=== PATIENT | female | born 1965 | race Caucasian/White ===

== ENCOUNTER 2018-05-29 17:03 | Inpatient (IN) ==
[2018-05-29] MEDS ORDERED: MORPHINE 4 MG/1 ML VIAL IV STA (20:35)
[2018-05-29] MEDS ORDERED: ONDANSETRON 4 MG/2 ML VIAL IV STA (20:35)
[2018-05-29] MEDS ORDERED: ASPIRIN 325 MG TABLET PO STA (20:35)
[2018-05-29] MEDS ORDERED: NITROGLYCERIN 2% OINT 1 INCH/GM PACK TOP STA (20:35)
[2018-05-29] MEDS ORDERED: SODIUM CHLORIDE 0.9% 500 ML IV STA (20:35)
[2018-05-29 21:48] LABS: Basophils # 0.1 10*3/uL (0.0-0.2); Basophils % 0.6 % (0.0-0.8); Eosinophils # 0.4 10*3/uL (0.0-0.87); Eosinophils % 2.8 % (0.00-10.9); Hematocrit 43.9 VOL% (35.7-47.0); Hemoglobin 15.1 GM/DL (12.0-16.0); Immature Granulocytes % 0.4 %; Immature Granulocytes Absolute 0.06 #; Lymphocytes # 5.2 10*3/uL (1.4-4.0); Lymphocytes % 37.5 % (21.3-54.2); Mean Corpuscular HGB Conc 34.4 GM/DL (32-36); Mean Corpuscular Hemoglobin 35 PG (27-34); Mean Corpuscular Volume 100.2 FL (87-102); Mean Platelet Volume 10.1 FL (9.6-12.0); Monocytes # 0.7 10*3/uL (0.11-0.8); Neutrophils # 7.4 10*3/uL (1.4-7.4); Neutrophils % 53.7 % (38.7-73.9); Platelet Count 343 T/CUMM (130-400); Red Blood Count 4.38 MC/CUMM (3.8-5.5); Red Cell Distribution Width 12.1 % (9.3-17.3); White Blood Count 13.8 T/CUMM (4-12)
[2018-05-29 21:55] LABS: Apearance,Urine Slightly Hazy (Clear); Bacteria,Urine Occasional /HPF (Few); Bilirubin,Urine Negative (Negative); Blood, Urine Small mg/dL (Negative); Glucose,Urine (UA) Negative (Negative); INR 0.9; Ketones,Urine Negative (Negative); Mucus,Urine Few /LPF (Occasional); Nitrite,Urine Negative (Negative); PT Patient Result 9.9 SECS; Protein,Urine Negative; RBC,Urine 1 /HPF (0-4); Squamous Epithelial Cell,Urine Occasional /HPF (0-10); Urine Color Yellow (Yellow); Urine Specific Gravity 1.019 (1.001-1.035); Urine Urobilinogen < 2.0 EU/DL (0.2-1.0); WBC,Urine 1 /HPF (0-6)
[2018-05-29 21:58] LABS: Barbiturates Screen,Urine Negative (Negative); Benzodiazepines Screen,Urine Negative (Negative); Cannabinoid Screen,Urine Negative (Negative); Opiate Screen,Urine Positive (Negative); Phencyclidine Screen,Urine Negative (Negative)
[2018-05-29 22:16] LABS: Alanine Aminotransferase 43 U/L (13-56); Albumin 4.1 G/DL (3.4-5.0); Alkaline Phosphatase 85 U/L (45-117); Aspartate Amino Transferase 26 U/L (0-37); Blood Urea Nitrogen 12 MG/DL (7-18); Calcium 9.1 MG/DL (8.5-10.1); Glucose 92 MG/DL (74-106); Osmolality,Calculated 274.7 MOS/KG (273-304); Potassium 3.7 MMOL/L (3.5-5.1); Sodium 138 MMOL/L (136-145); Total Protein 8.3 G/DL (6.4-8.3); Troponin I < 0.015 NG/ML (0.00-0.045)
[2018-05-29] MEDS ORDERED: ONDANSETRON 4 MG/2 ML VIAL IV PRN (23:22)
[2018-05-29] MEDS ORDERED: ACETAMINOPHEN 325 MG TABLET PO PRN (23:22)
[2018-05-30] MEDS: SODIUM CHLORIDE 0.9% 1,000 ML IV SCH ×2 (00:03→13:23)
[2018-05-30] MEDS: NICOTINE 21 MG/24 HR PATCH TRANSDERM PRN (00:15)
[2018-05-30] MEDS: HYDROmorphone 2 MG/1 ML VIAL IV PRN ×5 (00:15→21:56)
[2018-05-30 05:11] LABS: Basophils # 0.1 10*3/uL (0.0-0.2); Basophils % 0.8 % (0.0-0.8); Eosinophils # 0.4 10*3/uL (0.0-0.87); Eosinophils % 4.9 % (0.00-10.9); Hematocrit 37.2 VOL% (35.7-47.0); Immature Granulocytes % 0.2 %; Immature Granulocytes Absolute 0.02 #; Lymphocytes # 3.5 10*3/uL (1.4-4.0); Lymphocytes % 39.5 % (21.3-54.2); Mean Corpuscular HGB Conc 34.1 GM/DL (32-36); Mean Corpuscular Hemoglobin 35 PG (27-34); Mean Corpuscular Volume 101.1 FL (87-102); Monocytes # 0.6 10*3/uL (0.11-0.8); Monocytes % 6.9 % (1.7-12.7); Neutrophils # 4.2 10*3/uL (1.4-7.4); Neutrophils % 47.7 % (38.7-73.9); Red Blood Count 3.68 MC/CUMM (3.8-5.5); Red Cell Distribution Width 12.2 % (9.3-17.3)
[2018-05-30 05:14] LABS: Hemoglobin 12.7 GM/DL (12.0-16.0); Platelet Count 259 T/CUMM (130-400); White Blood Count 8.7 T/CUMM (4-12)
[2018-05-30 05:28] LABS: Albumin 3.1 G/DL (3.4-5.0); Bilirubin,Total 0.9 MG/DL (0.2-1.0); Calcium 8.7 MG/DL (8.5-10.1); Osmolality,Calculated 280.4 MOS/KG (273-304); Potassium 3.4 MMOL/L (3.5-5.1); Total Protein 6.5 G/DL (6.4-8.3)
[2018-05-30] MEDS: PANTOPRAZOLE 40 MG VIAL IV SCH (08:58)
[2018-05-30] MEDS: ASPIRIN EC 81 MG TABLET PO SCH (08:59)
[2018-05-30] MEDS: ENOXAPARIN 40 MG/0.4 ML SYRINGE SUBCUT SCH (19:14)
[2018-05-31] MEDS: HYDROmorphone 2 MG/1 ML VIAL IV PRN ×4 (03:07→22:20)
[2018-05-31] MEDS: NICOTINE 21 MG/24 HR PATCH TRANSDERM PRN (03:07)
[2018-05-31] MEDS: SODIUM CHLORIDE 0.9% 1,000 ML IV SCH ×3 (04:33→21:31)
[2018-05-31] MEDS ORDERED: ERGOCALCIFEROL 50,000 UNIT CAPSULE PO SCH (08:30)
[2018-05-31] MEDS: MECLIZINE 25 MG TABLET PO SCH ×2 (09:34→21:09)
[2018-05-31] MEDS: PANTOPRAZOLE 40 MG VIAL IV SCH (09:34)
[2018-05-31] MEDS: ENALAPRIL 10 MG TABLET PO SCH (09:34)
[2018-05-31] MEDS: ASPIRIN EC 81 MG TABLET PO SCH (09:34)
[2018-05-31] MEDS: ENOXAPARIN 40 MG/0.4 ML SYRINGE SUBCUT SCH (16:22)
[2018-05-31] MEDS: AMITRIPTYLINE 50 MG TABLET PO SCH (21:09)
[2018-06-01] MEDS: HYDROmorphone 2 MG/1 ML VIAL IV PRN ×4 (02:29→20:52)
[2018-06-01] MEDS: SODIUM CHLORIDE 0.9% 1,000 ML IV SCH ×2 (04:33→08:29)
[2018-06-01] MEDS: LEVOTHYROXINE 75 MCG TABLET PO SCH (06:27)
[2018-06-01] MEDS ORDERED: LEVOTHYROXINE 75 MCG TABLET PO SCH (08:16)
[2018-06-01] MEDS: NICOTINE 21 MG/24 HR PATCH TRANSDERM PRN (10:48)
[2018-06-01] MEDS: ENALAPRIL 10 MG TABLET PO SCH (10:49)
[2018-06-01] MEDS: ASPIRIN EC 81 MG TABLET PO SCH (10:49)
[2018-06-01] MEDS: MECLIZINE 25 MG TABLET PO SCH ×2 (10:49→20:52)
[2018-06-01] MEDS: PANTOPRAZOLE 40 MG VIAL IV SCH (10:50)
[2018-06-01] MEDS: ENOXAPARIN 40 MG/0.4 ML SYRINGE SUBCUT SCH (17:24)
[2018-06-01] MEDS: AMITRIPTYLINE 50 MG TABLET PO SCH (20:52)
[2018-06-02] MEDS: LEVOTHYROXINE 75 MCG TABLET PO SCH (05:59)
[2018-06-02] MEDS: MECLIZINE 25 MG TABLET PO SCH ×2 (09:37→21:16)
[2018-06-02] MEDS: ENALAPRIL 10 MG TABLET PO SCH (09:37)
[2018-06-02] MEDS: ASPIRIN EC 81 MG TABLET PO SCH (09:37)
[2018-06-02] MEDS: PANTOPRAZOLE 40 MG VIAL IV SCH (09:37)
[2018-06-02] MEDS: ENOXAPARIN 40 MG/0.4 ML SYRINGE SUBCUT SCH (15:55)
[2018-06-02] MEDS: AMITRIPTYLINE 50 MG TABLET PO SCH (21:16)
[2018-06-03] MEDS: LACTATED RINGERS 1,000 ML IV SCH ×3 (02:00→19:15)
[2018-06-03] MEDS: LEVOTHYROXINE 75 MCG TABLET PO SCH (06:20)
[2018-06-03] MEDS ORDERED: DIAZEPAM 5 MG TABLET PO ONE (09:34)
[2018-06-03] MEDS ORDERED: MIDAZOLAM 2 MG/2 ML VIAL IV ONE (09:34)
[2018-06-03] MEDS ORDERED: fentaNYL 100 MCG/2 ML VIAL IV ONE (09:34)
[2018-06-03] MEDS: PANTOPRAZOLE 40 MG VIAL IV SCH (09:45)
[2018-06-03] MEDS ORDERED: SODIUM CHLORIDE 0.45% 1,000 ML IV SCH (10:00)
[2018-06-03] MEDS: ENALAPRIL 10 MG TABLET PO SCH (10:19)
[2018-06-03] MEDS: ASPIRIN EC 81 MG TABLET PO SCH (10:20)
[2018-06-03] MEDS: MECLIZINE 25 MG TABLET PO SCH ×2 (10:20→21:08)
[2018-06-03] MEDS ORDERED: HEPARIN/NACL 0.9% 2 UNITS/ML 3,000 ML IV ONE (11:15)
[2018-06-03] MEDS ORDERED: fentaNYL 100 MCG/2 ML VIAL ONE (11:28)
[2018-06-03] MEDS ORDERED: MIDAZOLAM 2 MG/2 ML VIAL ONE (11:28)
[2018-06-03] MEDS ORDERED: HEPARIN 5,000 UNIT/1 ML VIAL ONE (11:29)
[2018-06-03] MEDS ORDERED: PROTAMINE SULFATE 50 MG/5 ML VIAL IV ONE ×2 (13:25→13:28)
[2018-06-03] MEDS ORDERED: HEPARIN 5,000 UNIT/1 ML VIAL IV ONE (13:28)
[2018-06-03] MEDS: HYDROmorphone 2 MG/1 ML VIAL IV PRN ×2 (14:34→21:08)
[2018-06-03] MEDS: CLOPIDOGREL 75 MG TABLET PO SCH (14:34)
[2018-06-03] MEDS: NICOTINE 21 MG/24 HR PATCH TRANSDERM PRN (16:57)
[2018-06-03] MEDS: ENOXAPARIN 40 MG/0.4 ML SYRINGE SUBCUT SCH (16:57)
[2018-06-03] MEDS: AMITRIPTYLINE 50 MG TABLET PO SCH (21:08)
[2018-06-04] MEDS: LACTATED RINGERS 1,000 ML IV SCH ×2 (02:29→05:10)
[2018-06-04] MEDS: HYDROmorphone 2 MG/1 ML VIAL IV PRN ×2 (02:45→10:01)
[2018-06-04] MEDS: LEVOTHYROXINE 75 MCG TABLET PO SCH (05:59)
[2018-06-04] MEDS: PANTOPRAZOLE 40 MG VIAL IV SCH (08:58)
[2018-06-04] MEDS: MECLIZINE 25 MG TABLET PO SCH (08:59)
[2018-06-04] MEDS: CLOPIDOGREL 75 MG TABLET PO SCH (08:59)
[2018-06-04] MEDS: ASPIRIN EC 81 MG TABLET PO SCH (08:59)
[2018-06-04] MEDS ORDERED: CLOPIDOGREL 75 MG TABLET PO SCH (09:00)
[2018-06-04] MEDS: ENALAPRIL 10 MG TABLET PO SCH (09:00)
[2018-06-04 12:15] VITALS: BP 124/86
== END 2018-06-04 12:55 | disposition home or self-care (01) | DRG 254 ==
LOC: N.ED 17:03 → N.3E 22:04
PROVIDERS: ADMIT Surgery; ATTEND Surgery